=== PATIENT | female | born 1955 | race Caucasian/White ===

== ENCOUNTER 2018-02-03 09:07 | Outpatient (CLI) | payer MEDICARE ==
--- NOTE | 2018-02-03 10:59 | RAD ---
RIGHT SHOULDER 3 VIEWS: Date: 02/03/18 HISTORY: Patient reported being pulled by right arm 5 years ago. Pain has worsened since then. FINDINGS: Subchondral lucencies involving the greater tuberosity suggesting rotator cuff arthropathy. There is loss of acromioclavicular joint space height. No fracture or dislocation. Visualized right ribs are unremarkable. Cervical fusion hardware is noted. IMPRESSION: Degenerative change of the right shoulder. No fracture or dislocation. POS: [email or web address]
--- NOTE | 2018-02-26 11:26 | MMO ---
BILATERAL SCREENING MAMMOGRAMS: 02/03/2018 COMPARISON: 07/29/2015 FINDINGS: This study is interpreted with the assistance of computer aided detection. There is indeterminate grouping of microcalcification seen within the upper outer right breast, which was present on the prior study but are less well delineated on the prior exam. There is suggestion of a small mass in the upper outer right breast, measuring 1.6 cm. There is also a lobulated area of slightly increased asymmetry in the central right breast. This may be related to superimposition of breast parenchyma, but additional views are recommended. No suspicious calcifications or mass is se en in the left breast. IMPRESSION: BI-RADS Category 0-Incomplete assessment. Additional imaging is requested. Magnification compression views, right breast, are recommended, in addition to a 90 mediolateral view. Ultrasound examination should also be scheduled, if needed, a t this time. POS: [email or web address]
== END 2018-02-03 09:08 | disposition home or self-care (01) ==
LOC: SCSMAMMO 09:07
PROVIDERS: ATTEND Nurse Practitioner Family
DX: Z12.31 Encounter for screening mammogram for malignant neoplasm of breast (principal); M25.511 Pain in right shoulder; M19.011 Primary osteoarthritis, right shoulder
CPT/HCPCS: 77067

== ENCOUNTER 2018-03-24 14:16 | Outpatient (CLI) | payer MEDICARE | END 2018-03-24 14:17 | disposition home or self-care (01) | LOC: BICMAMMO 14:16 | PROVIDERS: ATTEND Nurse Practitioner Family | DX: R92.2 Inconclusive mammogram (principal) | CPT/HCPCS: 77065; G0279 ==